=== PATIENT | female | born 1980 | race Hispanic/Latino ===

== ENCOUNTER 2017-07-20 10:27 | Emergency (ER) | payer OTHER ==
[2017-07-20 10:30] VITALS: BMI 40.3
[2017-07-20 10:38] VITALS: BP 139/97; PULSE 96; RESP 17; TEMP 98; O2SAT 97
--- NOTE | 2017-07-20 10:54 | ED PDOC ---
Arrival/HPI - General Chief Complaint: Eye Problem Time Seen by Provider: 07/20/17 10:44 Historian: Patient - History of Present Illness Narrative History of Present Illness (Text): 07/20/17 11:00 Patient reports acute onset of bilateral upper eyelid swelling which started this morning, patient states that yesterday AM she noticed an area of redness and swelling to the R side of the forehead, she took benadryl last night, with improvement of redness and swelling to the R side of the forehead. Patient reports that she did have a facial on , which she has had in the past, however is unsure if a new product was used on her face. Otherwise patient reports (-) throat swelling, (-) tongue / lip swelling, (-) dyspnea, (-) cough, (-) wheezing, (-) abdominal pain, (-) nausea (-) vomiting. There has been no other exposure to known allergens. The patient has no history of allergic reactions. Past Medical History - Provider Review Nursing Documentation Reviewed: Yes - Travel History If Yes, travel location?: [place] - Infectious Disease Hx of Infectious Diseases: None - Tetanus Immunization Tetanus Immunization: Unknown - Cardiac Hx Cardiac Disorders: No - Pulmonary Hx Respiratory Disorders: Yes Hx Asthma: Yes - Neurological Hx Neurological Disorder: No - HEENT Hx HEENT Disorder: No - Renal Hx Renal Disorder: No - Endocrine/Metabolic Hx Endocrine Disorders: Yes Hx Hypothyroidism: Yes - Hematological/Oncological Hx Blood Disorders: No - Integumentary Hx Dermatological Disorder: No - Musculoskeletal/Rheumatological Hx Musculoskeletal Disorders: No - Gastrointestinal Hx Gastrointestinal Disorders: No - Genitourinary/Gynecological Hx Genitourinary Disorders: No - Psychiatric Hx Psychophysiologic Disorder: No Hx Substance Use: No - Past Surgical History Past Surgical History: Non-Contributing - Surgical History Hx Tonsillectomy: No - Anesthesia Hx Anesthesia: Yes Hx Anesthesia Reactions: No Hx Malignant Hyperthermia: No - Suicidal Assessment Feels Threatened In Home Enviroment: No Family/Social History - Physician Review Nursing Documentation Reviewed: Yes Family/Social History: Unknown Family HX Smoking Status: Never Smoked Hx Alcohol Use: No Hx Substance Use: No Hx Substance Use Treatment: No Allergies/Home Meds Allergies/Adverse Reactions: Allergies No Known Allergies Allergy (Verified 07/20/17 10:30) Home Medications: Home Meds Medication Instructions Recorded Confirmed Albuterol HFA [Ventolin HFA 90 2 puff INH PRN PRN 03/26/15 07/20/17 mcg/actuation (8 g)] Fluticasone/Salmeterol 100/50 1 puff IH DAILY 07/20/17 07/20/17 [Advair Diskus 100/50] Levothyroxine [Synthroid] 0 mg PO DAILY 07/20/17 07/20/17 Review of Systems - Review of Systems Constitutional: Normal. absent: Fatigue, Weight Change, Fevers Eyes: Normal, Other (b/l upper eyelid swelling). absent: Vision Changes, Photophobia, Eye Pain ENT: Normal. absent: Hearing Changes, Sore Throat, Rhinorrhea, Sinus Congestion Respiratory: Normal. absent: SOB, Cough, Sputum Musculoskeletal: Normal. absent: Arthralgias, Back Pain, Neck Pain Skin: Normal. absent: Rash, Pruritis, Skin Lesions Physical Exam - Physical Exam Narrative Physical Exam (Text): 07/20/17 11:04 GENERAL APPEARANCE: Patient is awake, alert, oriented x 3, in no acute distress. SKIN: (-) lesions, (-) rash. Otherwise (-) excoriations, (-) drainage, (-) crusting of lesions is present. HENT: (+) mild - moderate edema to b/l upper eyelids, (-) conjunctival injection , (-) chemosis. Oropharynx: clear (-) tongue or lip swelling, (-) tonsillar exudates, (-) erythema. Airway: patent (-) stridor, (-) hoarseness. Mucous membranes moist. Nares: Patent (-) rhinorrhea. NECK: (-) lymphadenopathy, (-) tenderness. CARDIOVASCULAR: Normal rate and rhythm. (-) murmur, (-) gallop. CHEST: (-) rales, (-) wheezing, (-) dyspnea, (-) stridor. Breath sounds equal bilaterally. ABDOMEN: Soft. (-) tenderness, (-) distention, (-) HSM. NEURO: Mental status: Patient is alert, oriented, and with normal strength and tone. Vital Signs Temp Pulse Resp BP Pulse Ox 07/20/17 10:33 98.0 F 96 H 17 139/97 H 97 Medical Decision Making ED Course and Treatment: 07/20/17 11:03 37 yo F presents with bilateral upper eyelid swelling which started this morning , patient had a facial on . Patient given solumedrol 125 mg IM. Advised to continue taking otc benadryl or zyrtec. Advised of likely Dx of allergic reaction. Advised to follow up with primary care physician in 1-2 days without fail. Return to the emergency room at any time for any new or worsening symptoms.Patient states she fully agrees with and understands discharge instructions. States that she agrees with the plan and disposition. Verbalized and repeated discharge instructions and plan. I have given the patient opportunity to ask any additional questions. 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 Disposition/Present on Arrival - Present on Arrival Any Indicators Present on Arrival: No History of DVT/PE: No History of Uncontrolled Diabetes: No Urinary Catheter: No History of Decub. Ulcer: No History Surgical Site Infection Following: None - Disposition Have Diagnosis and Disposition been Completed?: Yes Diagnosis: Allergic reaction Disposition: HOME/ ROUTINE Disposition Time: 10:52 Patient Plan: Discharge Patient Problems: Current Active Problems Problem Status Onset Allergic reaction Acute Condition: STABLE Discharge Instructions (ExitCare): General Allergic Reaction (ED) Print Language: BRITISH Additional Instructions: Thank you for letting us take care of you today. You were treated for allergic reaction. The emergency medical care you received today was directed at your acute symptoms. Continue taking benadryl or zyrtec for your symptoms. It may take several days for your symptoms to resolve. Return to the Emergency Department if your symptoms worsen, do not improve, or if you have any other problems. Please contact your doctor in 2 days for re-evaluation and follow up. Bring any paperwork you were given at discharge with you along with any medications you are taking to your follow up visit. Our treatment cannot replace ongoing medical care by a primary care provider (PCP) outside of the emergency department. Thank you for allowing the [facility] team to be part of your care today. Referrals: PCP,NO [Primary Care Provider] - Follow up with primary Forms: [employer] (Mexican), WORK NOTE
== END 2017-07-20 11:11 | disposition home or self-care (01) ==
LOC: ED 10:27
DX: T78.40XA Allergy, unspecified, initial encounter (principal); X58.XXXA Exposure to other specified factors, initial encounter; E03.9 Hypothyroidism, unspecified
CPT/HCPCS: 96372; 99283; J2930

== ENCOUNTER 2017-12-30 20:08 | Emergency (ER) | payer OTHER ==
[2017-12-30 20:39] VITALS: BP 145/114; PULSE 113; RESP 18; TEMP 98; O2SAT 98; BMI 42.9
[2017-12-30] MEDS ORDERED: DiphenhydrAMINE 50 mg/ml Inj IVP STA (20:49)
--- NOTE | 2017-12-30 20:53 | ED PDOC ---
Arrival/HPI - General Chief Complaint: High Blood Pressure Time Seen by Provider: 12/30/17 20:33 Historian: Patient - History of Present Illness Narrative History of Present Illness (Text): 12/30/17 20:50 A 37 year old female, whose past medical history includes asthma and hypothyroidism, presents to the emergency department complaining of high blood pressure. Patient reports a bp of 162 systolic today. She notes generalized body aches, mild headache and chest tightness. Patient denies any fever, chills , nausea, vomiting, abdominal pain, shortness of breath or any other complaints. PMD: Dr. Patel Time/Duration: Other (today) Context: Home Past Medical History - Provider Review Nursing Documentation Reviewed: Yes - Infectious Disease Hx of Infectious Diseases: None - Tetanus Immunization Tetanus Immunization: Unknown - Cardiac Hx Cardiac Disorders: Yes Hx Hypertension: Yes - Pulmonary Hx Respiratory Disorders: Yes Hx Asthma: Yes - Neurological Hx Neurological Disorder: No - HEENT Hx HEENT Disorder: No - Renal Hx Renal Disorder: No - Endocrine/Metabolic Hx Endocrine Disorders: Yes Hx Hypothyroidism: Yes - Hematological/Oncological Hx Blood Disorders: No - Integumentary Hx Dermatological Disorder: No - Musculoskeletal/Rheumatological Hx Musculoskeletal Disorders: No - Gastrointestinal Hx Gastrointestinal Disorders: No - Genitourinary/Gynecological Hx Genitourinary Disorders: No - Psychiatric Hx Psychophysiologic Disorder: No Hx Substance Use: No - Past Surgical History Past Surgical History: Non-Contributing - Surgical History Hx Tonsillectomy: No - Anesthesia Hx Anesthesia: Yes Hx Anesthesia Reactions: No Hx Malignant Hyperthermia: No - Suicidal Assessment Feels Threatened In Home Enviroment: No Family/Social History - Physician Review Nursing Documentation Reviewed: Yes Family/Social History: No Known Family HX Smoking Status: Never Smoked Hx Alcohol Use: No Hx Substance Use: No Hx Substance Use Treatment: No Allergies/Home Meds Allergies/Adverse Reactions: Allergies No Known Allergies Allergy (Verified 12/30/17 20:45) Home Medications: Home Meds Medication Instructions Recorded Confirmed Albuterol HFA [Ventolin HFA 90 2 puff INH PRN PRN 03/26/15 12/30/17 mcg/actuation (8 g)] Fluticasone/Salmeterol 100/50 1 puff IH DAILY 07/20/17 12/30/17 [Advair Diskus 100/50] Levothyroxine [Synthroid] 0 mg PO DAILY 07/20/17 12/30/17 Review of Systems - Physician Review All systems were reviewed & negative as marked: Yes - Review of Systems Constitutional: absent: Fevers, Night Sweats Respiratory: absent: SOB Cardiovascular: Other (chest tightness) Gastrointestinal: absent: Abdominal Pain, Nausea, Vomiting Musculoskeletal: Myalgias Neurological: Headache Physical Exam Vital Signs Reviewed: Yes Vital Signs Temp Pulse Resp BP Pulse Ox 12/30/17 20:38 98.0 F 113 H 18 145/114 H 98 Temperature: Afebrile Blood Pressure: Hypertensive Pulse: Tachycardic Respiratory Rate: Normal Appearance: Positive for: Well-Appearing, Non-Toxic, Comfortable, Other ( Morbidly obese female) Pain Distress: None Mental Status: Positive for: Alert and Oriented X 3 - Systems Exam Head: Present: Atraumatic, Normocephalic Pupils: Present: PERRL Extroacular Muscles: Present: EOMI Conjunctiva: Present: Normal Mouth: Present: Moist Mucous Membranes Neck: Present: Normal Range of Motion Respiratory/Chest: Present: Clear to Auscultation, Good Air Exchange. No: Respiratory Distress, Accessory Muscle Use Cardiovascular: Present: Regular Rate and Rhythm, Normal S1, S2. No: Murmurs Abdomen: No: Tenderness, Distention, Peritoneal Signs Upper Extremity: Present: Normal Inspection. No: Cyanosis, Edema Lower Extremity: Present: Normal Inspection. No: Edema Neurological: Present: GCS=15, CN II-XII Intact, Speech Normal Skin: Present: Warm, Dry, Normal Color. No: Rashes Psychiatric: Present: Alert, Oriented x 3, Normal Insight, Normal Concentration Medical Decision Making ED Course and Treatment: 12/30/17 20:50 Impression: A 37 year old female with high blood pressure. Patient notes generalized body aches, mild headache and chest tightness. Plan: -- Chest xray -- EKG -- Labs -- Urinalysis -- Benadryl and Reglan -- Reassess and disposition Progress Notes: 12/30/17 23:42 Pt states she does not want to stay for XR/CT scan. States all her symptoms have resolved. Pt observed watching videos on her phone, in no acute distress, interacting appropriately. Pt informed of leukocytosis, states that is her baseline. Pt instructed to f/u outpatient, return if she develops any new/ worsening symptoms. Pt stable for d/c. - Lab Interpretations Lab Results: 12/30/17 21:01 12/30/17 21:01 Lab Results 12/30/17 21:32: Urine Color Yellow, Urine Appearance Sl cloudy, Urine pH 6.0, Ur Specific [place] 1.025, Urine Protein Negative, Urine Glucose (UA) Negative, Urine Ketones Trace H, Urine Blood Negative, Urine Nitrate Negative, Urine Bilirubin Negative, Urine Urobilinogen 0.2, Ur Leukocyte Esterase Small H, Urine RBC 0 - 2, Urine WBC 1 - 3, Ur Epithelial Cells 4 - 5, Urine Bacteria Mod , Urine HCG, Qual Negative 12/30/17 21:01: Sodium 142, Potassium 3.8, Chloride 105, Carbon Dioxide 28, Anion Gap 13, BUN 13, Creatinine 0.7, Est GFR ( Amer) > 60, Est GFR (Non- Af Amer) > 60, Random Glucose 86, Calcium 9.7, Magnesium 2.0, Total Bilirubin 0.2, AST 34, ALT 36, Alkaline Phosphatase 79, Lactate Dehydrogenase 474, Total Creatine Kinase 53, Troponin I < 0.01, Total Protein 7.2, Albumin 4.1, Globulin 3.1, Albumin/Globulin Ratio 1.3 12/30/17 21:01: PT 10.4, INR 0.91 L, APTT 28.4 12/30/17 21:01: WBC 13.9 H, RBC 4.47, Hgb 11.8 L, Hct 35.5 L, MCV 79.4 L, MCH 26.4, MCHC 33.2, RDW 14.0, Plt Count 404, MPV 8.6, Gran % 66.9, Lymph % (Auto) 25.7, [place] % (Auto) 6.0, Eos % (Auto) 1.2 L, Baso % (Auto) 0.2, Gran # 9.29 H, Lymph # (Auto) 3.6 H, [place] # (Auto) 0.8 H, Eos # (Auto) 0.2, Baso # (Auto) 0.03 I have reviewed the lab results: Yes - Medication Orders Current Medication Orders: Discontinued Medications Diphenhydramine HCl (Benadryl) 25 mg IVP STAT STA Stop: 12/30/17 20:50 Last Admin: 12/30/17 21:55 Dose: 25 mg IVP Administration Document 12/30/17 21:55 SS (Rec: 12/30/17 21:55 [id number] Charges for Administration # of IVP Administrations 1 Metoclopramide HCl (Reglan) 10 mg IVP STAT STA Stop: 12/30/17 20:50 Last Admin: 12/30/17 21:54 Dose: 10 mg IVP Administration Document 12/30/17 21:54 SS (Rec: 12/30/17 21:55 [id number] Charges for Administration # of IVP Administrations 1 - Scribe Statement The provider has reviewed the documentation as recorded by the Scribe Cassi Montero Provider Scribe Attestation: All medical record entries made by the Scribe were at my direction and personally dictated by me. I have reviewed the chart and agree that the record accurately reflects my personal performance of the history, physical exam, medical decision making, and the department course for this patient. I have also personally directed, reviewed, and agree with the discharge instructions and disposition. Disposition/Present on Arrival - Present on Arrival Any Indicators Present on Arrival: No History of DVT/PE: No History of Uncontrolled Diabetes: No Urinary Catheter: No History of Decub. Ulcer: No History Surgical Site Infection Following: None - Disposition Have Diagnosis and Disposition been Completed?: Yes Diagnosis: Headache, Leukocytosis Disposition: HOME/ ROUTINE Disposition Time: 11:00 Condition: STABLE Discharge Instructions (ExitCare): Chest Pain, Headache, Adult (DC), White Blood Cell Count Differential Test Additional Instructions: please follow up with your doctor. you are declining further imaging in the er, including cat scan and xray. you are able to return to any er with any worsening symptoms or concerns please discuss your lab results with your doctor. you may need further testing. Prescriptions: Acetaminophen/Butalbital/Caf [Fioricet] 1 tab PO Q8 PRN #20 tab PRN Reason: Headache Referrals: Fermin Patel MD [Primary Care Provider] - Follow up with primary Isidro Kiran MD [Staff Provider] - Follow up with primary Forms: [employer] (Swedish)
[2017-12-30 21:09] LABS: BASO # 0.03 K/mm3 (0.0-2.0); BASO % 0.2 % (0.0-3.0); EOS # 0.2 (0.0-0.7); EOS % 1.2 % (1.5-5.0); GRAN # 9.29 (1.4-6.5); GRAN % 66.9 % (50.0-68.0); HEMOGLOBIN 11.8 g/dL (12.0-16.0); LYMPH # 3.6 (1.2-3.4); LYMPH % 25.7 % (22.0-35.0); MEAN CELL VOLUME 79.4 fl (80.0-105.0); MEAN CORPUSCULAR HEMOGLOBIN 26.4 pg (25.0-35.0); MEAN CORPUSCULAR HGB CONC 33.2 g/dl (31.0-37.0); MEAN PLATELET VOLUME 8.6 fl (7.0-11.0); MONO # 0.8 (0.1-0.6); RBC 4.47 10^6/uL (3.5-6.1); WHITE BLOOD COUNT 13.9 10^3/ul (4.5-11.0)
[2017-12-30 21:15] LABS: ALB/GLOB RATIO 1.3 (1.1-1.8); ALBUMIN 4.1 g/dL (3.0-4.8); ALT/SGPT 36 U/L (7-56); AST/SGOT 34 U/L (14-36); BLOOD UREA NITROGEN 13 mg/dL (7-21); CALCIUM 9.7 mg/dL (8.4-10.5); GFR AFRICAN-AMERICAN > 60; GFR NON-AFRICAN AMERICAN > 60
[2017-12-30 21:18] LABS: INR 0.91 (0.93-1.08); PARTIAL THROMBOPLASTIN TIME 28.4 Seconds (25.1-36.5); PROTHROMBIN TIME 10.4 SECONDS (9.4-12.5)
[2017-12-30 21:28] LABS: TROPONIN I < 0.01 ng/mL
[2017-12-30 22:12] LABS: URINE BILIRUBIN NEGATIVE (NEGATIVE); URINE BLOOD NEGATIVE (NEGATIVE); URINE GLUCOSE (UA) NEGATIVE (NEGATIVE); URINE LEUKOCYTE ESTERASE SMALL Leu/uL (NEGATIVE); URINE PROTEIN NEGATIVE mg/dL (<30 mg/dL); URINE UROBILINOGEN 0.2 E.U./dL (<1 E.U./dL)
[2017-12-30 22:29] LABS: URINE APPEARANCE SL CLOUDY (CLEAR); URINE COLOR YELLOW (YELLOW)
[2017-12-30 22:30] LABS: URINE BACTERIA MOD (NEG); URINE RBC 0 - 2 /hpf (0-2)
[2017-12-30 22:31] LABS: HCG,QUALITATIVE URINE NEGATIVE (NEGATIVE)
--- NOTE | 2017-12-31 21:01 | CARD ---
APPROVED REPORT EKG Measurement Heart [id number] <Conclusion> Sinus tachycardia Otherwise normal ECG
== END 2017-12-30 23:48 | disposition home or self-care (01) ==
LOC: ED 20:08
DX: D72.829 Elevated white blood cell count, unspecified (principal); R51 Headache; I10 Essential (primary) hypertension; E03.9 Hypothyroidism, unspecified
CPT/HCPCS: 80053; 81001; 82550; 83615; 83735; 84484; 84703; 85025; 85610; 85730; 87086; 93005; 96374; 96375; 99283; J1200; J2765